=== PATIENT | male | born 1970 | race Caucasian/White ===

== ENCOUNTER 2020-11-13 10:12 | Emergency (ER) | payer BC ==
--- NOTE | 2020-11-13 12:16 | RAD REPORT ---
EXAM DESCRIPTION: MRI - Lumbar Spine Wo David - 11/13/2020 12:00 pm CLINICAL HISTORY: Left thigh numbness, history of stroke COMPARISON: None. TECHNIQUE: Sagittal T1-weighted, T2-weighted and T2-STIR weighted sequences were obtained. Axial T1 -weighted and heavily T2-weighted sequenceswere obtained through the lumbar disc levels. FINDINGS: Lumbar bodies are normal in height and alignment. No suspicious marrow signal. No paraspin al masses. Conus is normal with no clumping or thickening of the cauda equina. T12-L1 level: No significant findings. L1-2 level: Mild broad-based disc bulge without significant neural foraminal narrowing or central spi nal stenosis. L2-3 level: No significant findings. L3-4 level: Facet hypertrophy with small broad-based disc bulge without significant central spinal st enosis and mild neural foraminal narrowing. L4-5 level: Small central disc protrusion resulting in left lateral recess stenosis as well as modera te left neural foraminal narrowing. The right neural foramen is adequate. No significant central spin al stenosis. L5-S1 level: Small broad-based disc bulge with annular fissure suspected. Mild to moderate left and m ild right neural foraminal narrowing. No central spinal stenosis. IMPRESSION: Multilevel degenerative disc disease resulting in varying degrees of neural foraminal na rrowing. No significant central spinal stenosis identified. The neural foraminal narrowing on the lef t which is at worst moderate is predominately at L4-5 and L5-S1.
--- NOTE | 2020-11-13 13:11 | ER ---
Nurse's Notes [facility] Name: Niko Verdin IV Age: 50 yrs Sex: Male : 1970 Arrival Date: 11/13/2020 Time: 10:14 Bed 13 Private MD: Marlo Lopez T Diagnosis: Paresthesia of skin;Other intervertebral disc degeneration, lumbosacral region Presentation: 11/13 10:20 Chief complaint: Patient states: numbness to left thigh that began 1 month ago. Pt's aa5 states "when he sits down for a prolonged amount of time his privates also go numb". Pt takes Eliquis. Coronavirus screen: At this time, the client does not indicate any symptoms associated with coronavirus-19. Ebola Screen: Patient negative for fever greater than or equal to 101.5 degrees Fahrenheit, and additional compatible Ebola Virus Disease symptoms. No acute neurological deficit is noted. Pre-hospital glucose is not applicable to this patient. Initial Sepsis Screen: Does the patient meet any 2 criteria? No. Patient's initial sepsis screen is negative. Does the patient have a suspected source of infection? No. Patient's initial sepsis screen is negative. Risk Assessment: Do you want to hurt yourself or someone else? Patient reports no desire to harm self or others. Onset of symptoms was 2020. 10:20 Acuity: SALVATORE 3 aa5 10:20 Method Of Arrival: Ambulatory aa5 Triage Assessment: 10:20 General: Appears comfortable, Behavior is calm, cooperative. Pain: Denies pain. EENT: aa5 No deficits noted. Neuro: Level of Consciousness is awake, alert, obeys commands, Oriented to person, place, time, situation, Hearing Examiner are equal bilaterally Moves all extremities. Gait is steady, Speech is normal, Facial symmetry appears normal, Reports numbness in left quadriceps. Cardiovascular: Patient's skin is warm and dry. Respiratory: Airway is patent Respiratory effort is even, unlabored, Respiratory pattern is regular, symmetrical. GI: Abdomen is round. : No signs and/or symptoms were reported regarding the genitourinary system. Derm: Skin is pink, warm \\T\\ dry. Musculoskeletal: Range of motion: intact in all extremities. Stroke Activation: Symptom onset > 6 hours Physician: Stroke Attending; Name: ; Notified At: ; Arrived At: Physician: Chief Stroke Resident; Name: ; Notified At: ; Arrived At: Physician: Stroke Resident; Name: ; Notified At: ; Arrived At: Physician: ED Attending; Name: ; Notified At: ; Arrived At: Physician: ED Resident; Name: ; Notified At: ; Arrived At: Historical: - Allergies: 10:22 No Known Allergies; aa5 - PMHx: 10:22 CVA; Hypercholesterolemia; Hypertensive disorder; Atrial fibrillation; CHF; aa5 - Immunization history:: Client reports receiving the 2nd dose of the Covid vaccine. - Social history:: Smoking status: Patient denies any tobacco usage or history of. Screenin:25 Abuse screen: Denies threats or abuse. Nutritional screening: No deficits noted. aa5 Tuberculosis screening: No symptoms or risk factors identified. Fall Risk None identified. Assessment: 13:22 Reassessment: Patient is alert, oriented x 3, equal unlabored respirations, skin aa5 warm/dry/pink. 13:22 Neuro: Gait is steady. aa5 Vital Signs: 10:20 BP 139 / 85; Pulse 74; Resp 18 S; Temp 98.5(O); Pulse Ox 96% on R/A; Weight 113.4 kg aa5 (R); Height 5 ft. 10 in. (177.80 cm) (R); Pain 0/10; 10:20 Body Mass Index 35.87 (113.40 kg, 177.80 cm) aa5 ED Course: 10:14 Patient arrived in ED. am2 10:14 Marlo Lopez MD is Private Physician. am2 10:20 Arm band placed on. aa5 10:20 Patient has correct armband on for positive identification. aa5 10:22 Triage completed. aa5 10:25 Patient placed in waiting room, Patient notified of wait time. aa5 11:59 Lumbar Spine Wo Con In Process Unspecified. EDMS 12:56 Lori Herrera, ESVIN is Primary Nurse. tr6 12:57 Migue Quezada NP is PHCP. pm1 12:57 Juan Rockwell MD is Attending Physician. pm1 13:22 No provider procedures requiring assistance completed. Patient did not have IV access aa5 during this emergency room visit. Administered Medications: No medications were administered Outcome: 13:10 Discharge ordered by . pm1 13:22 Discharged to home ambulatory, with significant other. aa5 13:22 Condition: stable 13:22 Discharge instructions given to patient, Instructed on discharge instructions, follow up and referral plans. Demonstrated understanding of instructions, follow-up care. 13:24 Patient left the ED. tr6 Signatures: Dispatcher [employer] Freda Watson RN RN aa5 Migue Quezada NP MUSIC ADAPTER pm1 Itzel Zayas am2 Lori Herrera RN RN tr6 Corrections: (The following items were deleted from the chart) 10:24 10:20 Chief complaint: Patient states: numbness to left thigh that began 1 month ago. aa5 Pt's states "when he sits down for a prolonged amount of time his privates also go numb". aa5
--- NOTE | 2020-11-13 13:11 | EDPHYS ---
Physician Documentation [facility] Name: Niko Verdin IV Age: 50 yrs Sex: Male : 1970 Arrival Date: 11/13/2020 Time: 10:14 Bed 13 Private MD: Marlo Lopez T ED Physician Juan Rockwell HPI: 11/13 13:25 This 50 yrs old Male presents to ER via Ambulatory with complaints of Leg pm1 numbness. 13:25 The patient presents to the emergency department with paresthesias of the lateral pm1 aspect of left thigh, . 13:26 Onset: The symptoms/episode began/occurred 1 month(s) ago. Context: occurred at an pm1 unknown location. Associated signs and symptoms: Pertinent negatives: weakness, incontinence, pain. Severity of symptoms: in the emergency department the symptoms have resolved. Current symptoms: Currently, the patient is not experiencing any symptoms. The patient has not experienced similar symptoms in the past. The patient has not recently seen a physician. Patient with on and off numbness to lateral aspect of left thigh and occasional numbness to groin area after sitting for at least two hours. Historical: - Allergies: 10:22 No Known Allergies; aa5 - PMHx: 10:22 CVA; Hypercholesterolemia; Hypertensive disorder; Atrial fibrillation; CHF; aa5 - Immunization history:: Client reports receiving the 2nd dose of the Covid vaccine. - Social history:: Smoking status: Patient denies any tobacco usage or history of. ROS: 13:26 Constitutional: Negative for fever, chills, and weight loss, Cardiovascular: Negative pm1 for chest pain, palpitations, and edema, Respiratory: Negative for shortness of breath, cough, wheezing, and pleuritic chest pain, MS/Extremity: Negative for injury and deformity, Skin: Negative for injury, rash, and discoloration. 13:26 Abdomen/GI: Negative for abdominal pain, nausea, vomiting, diarrhea, and constipation. 13:26 Back: Negative for injury or acute deformity, pain at rest, pain with movement. 13:26 Neuro: Positive for numbness, of the lateral aspect of left thigh, Negative for headache, weakness. 13:26 All other systems are negative. Exam: 13:26 Constitutional: This is a well developed, well nourished patient who is awake, alert, pm1 and in no acute distress. Head/Face: Normocephalic, atraumatic. 13:26 Skin: Warm, dry with normal turgor. Normal color with no rashes, no lesions, and no evidence of cellulitis. MS/ Extremity: Pulses equal, no cyanosis. Neurovascular intact. Full, normal range of motion. 13:26 Eyes: Exam is negative for acute changes, Extraocular movements: intact throughout, Conjunctiva: no acute changes, no injection. 13:26 ENT: Mouth: Lips: normal, Oral mucosa: normal, pink and intact, moist. 13:26 Neck: ROM/movement: is normal, is supple, without pain. 13:26 Cardiovascular: Rate: normal, Rhythm: regular, Pulses: no pulse deficits are appreciated. 13:26 Respiratory: Exam negative for acute changes, respiratory distress, shortness of breath. 13:26 Abdomen/GI: Inspection: obese Palpation: abdomen is soft and non-tender, in all quadrants. 13:26 Back: pain, is absent, ROM is normal, vertebral tenderness, is not appreciated. 13:26 Neuro: Exam negative for acute changes, Orientation: is normal, Mentation: is normal, Motor: moves all fours, strength is normal, strength is 5/5 in all extremities, Sensation: is normal, no obvious gross deficits. Vital Signs: 10:20 BP 139 / 85; Pulse 74; Resp 18 S; Temp 98.5(O); Pulse Ox 96% on R/A; Weight 113.4 kg aa5 (R); Height 5 ft. 10 in. (177.80 cm) (R); Pain 0/10; 10:20 Body Mass Index 35.87 (113.40 kg, 177.80 cm) aa5 MDM: 12:57 Patient medically screened. pm1 13:09 Data reviewed: vital signs. Data interpreted: Pulse oximetry: on room air is 96 %. pm1 Interpretation: normal. Counseling: I had a detailed discussion with the patient and/or guardian regarding: the historical points, exam findings, and any diagnostic results supporting the discharge/admit diagnosis, radiology results, the need for outpatient follow up, a neurosurgeon, weight loss, to return to the emergency department if symptoms worsen or persist or if there are any questions or concerns that arise at home. 11/13 10:31 Order name: Lumbar Spine Wo Con; Complete Time: 12:57 EDMS Administered Medications: No medications were administered Disposition: 14:18 Co-signature as Attending Physician, Juan Rockwell MD I agree with the assessment and kdr plan of care. Disposition Summary: 11/13/20 13:10 Discharge Ordered Location: Home pm1 Problem: new pm1 Symptoms: have improved pm1 Condition: Stable pm1 Diagnosis - Paresthesia of skin pm1 - Other intervertebral disc degeneration, lumbosacral region pm1 Followup: pm1 - With: Emergency Department - When: As needed - Reason: Worsening of condition Followup: pm1 - With: Private Physician - When: 2 - 3 days - Reason: Recheck today's complaints, Continuance of care, Re-evaluation by your physician Discharge Instructions: - Discharge Summary Sheet pm1 - Paresthesia pm1 - Degenerative Disk Disease pm1 Forms: - Medication Reconciliation Form pm1 - Thank You Letter pm1 - Antibiotic Education pm1 - Prescription Opioid Use pm1 Signatures: Dispatcher [employer] EDMS Juan Rockwell MD MD [facility] Freda Angeles, RN RN aa5 Migue Quezada, CARTER DESK CLERK pm1
[2020-11-13 13:30] VITALS: BP 139/85; TEMP 98.5; O2SAT 96
== END 2020-11-13 13:24 | disposition home or self-care (01) ==
LOC: ER 10:12
DX: M51.37 Other intervertebral disc degeneration, lumbosacral region (principal); I10 Essential (primary) hypertension; Z86.73 Personal history of transient ischemic attack (TIA), and cerebral infarction without residual deficits
CPT/HCPCS: 72148; 99283